=== PATIENT | female | born 1960 | race African-American/Black ===

== ENCOUNTER 2019-11-12 08:36 | Day surgery (SDC) | payer OTHER ==
[~2019-11-12] VITALS: Ht 162.6 cm; Wt 90.5 kg
[~2019-11-12 08:36] MED LIST: AMLO10TA8 PO; ASPI81TA50 PO; CRESTOR40 MG PO; FAMO20TA5 PO; HYDROmorphone 2 MG/ML VIAL IV PRN; LIDOCAINE 2% PF 5 ML VIAL. ONE; METO-247 PO; MORPHINE SULFATE 2 MG/ML VIAL. IV PRN; ONDA-84 PO; ONDANSETRON PF 4 MG/2 ML VIAL. IV PRN; POTASSIUM PO; PROCHLORPERAZINE 10 MG/2 ML VIAL. IV PRN; PROPOFOL 20 ML IV ONE; ROCURONIUM 50 MG/5 ML VIAL. ONE; SEVOFLURANE 61 TO 120 MINUTES. IH ONE; fentaNYL PF VIAL 100 MCG/2 ML VIAL IV PRN
[2019-11-12] MEDS ORDERED: IOHEXOL 300 MG/ML 50 ML VIAL. ONE (08:40)
[2019-11-12] MEDS ORDERED: SURGICEL HEMOSTAT 4X8 EACH. ONE (08:40)
[2019-11-12] MEDS ORDERED: BUPIVACAINE-EPI 0.25%-1:200000 MPF 30 ML VIAL. ONE (08:41)
[2019-11-12] MEDS ORDERED: ROCURONIUM 50 MG/5 ML VIAL. ONE (09:10)
[2019-11-12] MEDS ORDERED: LIDOCAINE 2% PF 5 ML VIAL. ONE ×2 (09:10→10:19)
[2019-11-12] MEDS ORDERED: ONDANSETRON PF 4 MG/2 ML VIAL. ONE (09:10)
[2019-11-12] MEDS ORDERED: PROPOFOL 20 ML IV ONE (09:10)
[2019-11-12] MEDS ORDERED: DEXAMETHASONE SOD PHOS 4 MG/ML VIAL ONE (09:10)
[2019-11-12] MEDS: IV RINGERS,LACTATED 1000ML 1,000 ML IV SCH ×2 (09:15→10:39)
[2019-11-12] MEDS ORDERED: ACETAMINOPHEN 500 MG TABLET PO ONE ×2 (09:17→09:30)
[2019-11-12] MEDS ORDERED: SEVOFLURANE 61 TO 120 MINUTES. IH ONE (09:49)
[2019-11-12] MEDS ORDERED: KETOROLAC 30 MG/ML VIAL. ONE (09:53)
[2019-11-12] MEDS ORDERED: GLYCOPYRROLATE 1 MG/5 ML VIAL. ONE (09:57)
[2019-11-12] MEDS ORDERED: NEOSTIGMINE METHYLSULFATE 5 MG/5 ML SYRINGE. ONE (09:57)
[2019-11-12] MEDS ORDERED: PHENYLEPHRINE in 0.9% NACL PF 1 MG/10 ML SYRINGE. IV ONE (10:12)
[2019-11-12] MEDS ORDERED: fentaNYL PF VIAL 100 MCG/2 ML VIAL ONE (10:18)
--- NOTE | 2019-11-12 10:21 | PDOC4 ---
Operative Note Operative Note Date: 11/12/2019 Preoperative diagnosis: Chronic cholecystitis with cholelithiasis Postoperative diagnosis: Same Procedure: Laparoscopic cholecystectomy Surgeon: Jay Specimen: Gallbladder Dictation: Patient is a 59-year-old female whose had right upper quadrant abdominal pain especially postprandial ultrasound shows gallstones. Procedure of laparoscopic cholecystectomy was explained to the patient in detail respite effects are also discussed including bleeding infection injury to intra- abdominal contents possibly necessitating further or open operations alternatives to this procedure also discussed with the patient who seemed to understand and gave both verbal and written consent to have the procedure performed. Patient was taken to the operating room placed in the supine position general anesthesia was initiated once patient was sleeping and intubated her abdomen was prepped and draped in the usual sterile fashion using ChloraPrep. An area just below the umbilicus was injected with quarter percent Marcaine with epinephrine incision was made with 11 blade scalpel and a varies needle was placed within the abdomen creating pneumoperitoneum. Once this was complete 11 mm port was placed and a 5 mm camera is placed within the abdomen which was inspected no other red maladies were noted. A 5 mm port was placed in the epigastrium 5 mm port was placed in the right lateral abdomen and one in the right mid abdomen all under direct visualization the dome of the gallbladder was grasped retracted cephalad the infundibulum of the gallbladder is grasped directed laterally exposing the triangle the adherent tissues of the triangle were taken down exposing the cystic duct and cystic artery both were doubly clip ped and transected the gallbladder was taken off the liver with hook electrocautery placed in Endo Catch bag moving the umbilicus the right upper quadrant was irrigated and suctioned dry hemostasis deemed appropriate and the pneumoperitoneum was reduced all ports were removed the fascial defect at the umbilicus was closed with [id number] 0 Vicryl suture and the skin was reapproximated all port sites with 4-0 subcuticular Monocryl Mastisol Steri- Strips and island dressings were applied patient was awakened and extubated in operating room taken to recovery in stable condition all sponge instrument needle counts listed as correct estimated blood loss 5 mL GABI CHURCH MD Nov 12, 2019 10:21
--- NOTE | 2019-11-12 10:24 | DISCH ---
DISCHARGE INSTRUCTIONS Condition on Discharge Condition on Discharge: Stable Activity After Discharge Activity Instructions for Disc: Avoid exertion Other activity instructions: No lifting more than 20 pounds for 2 weeks Diet after Discharge Diet after Discharge: Low Fat Wound Incision Care Other wound/incision instructi: May shower in 24 hours Contacting the after DC Call your doctor for: If your condition worsens Follow-Up Follow up with: Dr. Church in 2 weeks GABI CHURCH MD Nov 12, 2019 10:23
[2019-11-12] MEDS ORDERED: OXYC1TAB15 PO (10:37)
[2019-11-12] MEDS: fentaNYL PF VIAL 100 MCG/2 ML VIAL IV PRN ×2 (10:41→11:05)
[2019-11-12] MEDS ORDERED: oxyCODONE/APAP 5/325 1 TAB TABLET PO ONE ×2 (10:45)
[2019-11-12 11:43] VITALS: BP 135/83
--- NOTE | 2019-11-15 17:06 | PATHOLOGY ---
[facility] Accession Number: [id number] . 01 Material submitted: . gallbladder - GALLBLADDER AND CONTENTS . 01 Clinical history: . Chronic cholecystitis with calculus. . 02 Diagnosis: Gallbladder, cholecystectomy: - Cholelithiasis. - Chronic cholecystitis. (JPM:marsha; 11/15/2019) S 11/15/2019 1022 Local . 02 Comment: There is no evidence of malignancy. (JPM:marsha; 11/15/2019) . 02 Electronically signed: . Cristi Bowers MD, Pathologist NPI- [id number] . 01 Gross description: . Received in formalin labeled "Tena, Rubi, gallbladder and contents" is an intact cholecystectomy specimen measuring 8.4 x 3.1 x 2.5 cm. The serosa is tripp-pink and smooth with a full thickness defect in the fundus measuring 0.3 cm and the specimen is opened to reveal dark green velvety mucosa without polyps or masses. The average wall thickness is 0.1 cm. Multiple roughened black calculi are present within the gallbladder measuring in aggregate 1.0 x 0.7 x 0.3 cm, and ranging from 0.1-0.6 cm in greatest dimension. Place Change Roof Bolter sections of the fundus and body and the cystic duct margin are submitted in A1. [place] [place] [facility] 11/14/2019 1025 Local . 02 Pathologist provided ICD-10: K80.10 . 02 CPT . 830256 Specimen Comment: A courtesy copy of this report has been sent to [phone], [phone] Specimen Comment: [id number] Specimen Comment: Report sent to / DR CHAU Performed at: 01 [facility] [place] [id number] [facility] [address], [place], [place] [id number] MD Cedric Bobo MD Phone: [phone] Performed at: 02 [facility] [address], [place] [id number] MD Cristi Bowers MD Phone: [phone]
== END 2019-11-12 12:33 | disposition home or self-care (01) ==
LOC: SURG 08:36
PROVIDERS: ATTEND Surgery
DX: K80.10 Calculus of gallbladder with chronic cholecystitis without obstruction (principal); I10 Essential (primary) hypertension; E78.00 Pure hypercholesterolemia, unspecified; I25.2 Old myocardial infarction; E66.9 Obesity, unspecified; Z68.34 Body mass index [BMI] 34.0-34.9, adult; Z86.73 Personal history of transient ischemic attack (TIA), and cerebral infarction without residual deficits; Z87.891 Personal history of nicotine dependence; Z87.39 Personal history of other diseases of the musculoskeletal system and connective tissue; Z72.89 Other problems related to lifestyle
CPT/HCPCS: 47562; A7015; J0780; J1100; J1885; J2370; J2405; J2704; J2710; J3010; J3490; J7030; 88304; Q9967